=== PATIENT | female | born 1975 | race African-American/Black ===

== ENCOUNTER 2021-08-28 12:08 | Inpatient (IN) | payer OTHER ==
[2021-08-28] MEDS ORDERED: Morphine 4 MG/ML VIAL ONE (12:48)
[2021-08-28] MEDS ORDERED: Mag-Al Plus 1200 MG/1200 MG/120 MG/30 ML UDCUP ONE (12:48)
[2021-08-28] MEDS ORDERED: Ondansetron PF 4 MG/2 ML Vial ONE (12:48)
[2021-08-28] MEDS ORDERED: Lidocaine Viscous Sol 2% 15 ml UD Cup ONE (12:48)
[2021-08-28] MEDS ORDERED: Ketorolac Tromethamine 30 MG/ML VIAL ONE (12:49)
[2021-08-28 13:00] LABS: Hemoglobin 9.5 g/dL (12.0-15.5); Mean Corpuscular HGB CONC 30.1 g/dL (32.0-36.0); Mean Corpuscular Hemoglobin 22.4 pg (27.0-33.0); Mean Corpuscular Volume 74.5 fl (81.6-98.3); Mean Platelet Volume 9.6 fl (7.4-10.4); Platelet Count 431 10x3/uL (150-450); RBC Distribution Width 17.4 % (11.5-14.5); Red Blood Cell (RBC) Count 4.24 10x6/uL (3.90-5.03); White Blood Cell (WBC) Count 5.2 10x3/uL (3.5-10.5)
[2021-08-28 13:01] LABS: MDiff Complete? YES
[2021-08-28 13:14] LABS: ALT (SGPT) 33 U/L (8-55); AST (SGOT) 29 U/L (5-34); Albumin 3.7 g/dL (3.5-5.0); Alkaline Phosphatase 56 U/L (40-110); Anion Gap 16 mmol/L (10-20); BUN (Urea Nitrogen) 7 mg/dL (7.0-18.7); Bilirubin, Total 0.2 mg/dL (0.2-1.2); Calc. Creatinine Clearance 0 mL/min (70-130); Calcium 8.6 mg/dL (7.8-10.44); Carbon Dioxide 20 mmol/L (22-29); Chloride 109 mmol/L (98-107); Globulin 4.1 g/dL (2.4-3.5); Glucose 106 mg/dL (70-105); Lipase 27 U/L (8-78); Potassium 4.5 mmol/L (3.5-5.1); Protein, Total 7.8 g/dL (6.0-8.3); Sodium 140 mmol/L (136-145)
[2021-08-28 13:48] LABS: Monocytes 13 % (0-10)
[2021-08-28 13:52] LABS: Eosinophils 2 % (0-10); Lymphocytes 59 % (21-51); Neutrophil 25 % (42-75)
[2021-08-28] MEDS ORDERED: Iopamidol 370 76% 100 ML VIAL ONE (14:29)
[2021-08-28 15:54] LABS: Troponin I 0.142 ng/mL (< 0.028)
[2021-08-28] MEDS ORDERED: Enoxaparin Sodium 30 MG/0.3 ML SYRINGE ONE (16:12)
[2021-08-28] MEDS ORDERED: Enoxaparin Sodium 100 MG/ML SYRINGE ONE (16:13)
[2021-08-28] MEDS ORDERED: Ondansetron PF 4 MG/2 ML Vial IVP PRN (17:23)
[2021-08-28] MEDS ORDERED: Acetaminophen 325 MG TAB PO PRN (17:23)
[2021-08-28] MEDS ORDERED: hydrALAZINE 20 MG/ML VIAL SLOW IVP PRN (17:31)
[2021-08-28] MEDS ORDERED: Morphine 4 MG/ML VIAL SLOW IVP PRN (17:31)
[2021-08-28 18:01] VITALS: BMI 51.3
[2021-08-28 18:59] LABS: Troponin I 0.671 ng/mL (< 0.028)
[2021-08-28 22:06] LABS: Troponin I 1.401 ng/mL (< 0.028)
[2021-08-28] MEDS ORDERED: Aspirin Chewable 81 MG TAB PO SCH (23:45)
[2021-08-29] MEDS: Nitroglycerin 2% Ointment 1 INCH/1 GM Packet TOP SCH ×3 (00:01→16:16)
[2021-08-29 02:53] LABS: SARS-CoV-2 NAA Rapid Test Not Detected (NotDetected)
[2021-08-29 04:48] LABS: #Eosinphils 0.1 10x3/uL (0.0-0.5); #Monocytes 0.7 10x3/uL (0.0-1.1); #Neutrophils 2.2 10x3/uL (1.5-8.4); %Basophils 0.8 % (0.0-2.0); %Eosinophils 2.2 % (0.0-6.0); %Lymphocytes 40.2 % (18.0-47.0); %Monocytes 12.9 % (0.0-10.0); %Neutrophils 43.5 % (40.0-75.0); Hemoglobin 8.8 g/dL (12.0-15.5); Mean Corpuscular HGB CONC 29.5 g/dL (32.0-36.0); Mean Corpuscular Hemoglobin 22.2 pg (27.0-33.0); Mean Corpuscular Volume 75.1 fl (81.6-98.3); Platelet Count 390 10x3/uL (150-450); RBC Distribution Width 17.2 % (11.5-14.5); Red Blood Cell (RBC) Count 3.97 10x6/uL (3.90-5.03)
[2021-08-29 05:00] LABS: ALT (SGPT) 28 U/L (8-55); AST (SGOT) 42 U/L (5-34); Albumin 3.4 g/dL (3.5-5.0); Alkaline Phosphatase 47 U/L (40-110); Anion Gap 14 mmol/L (10-20); BUN (Urea Nitrogen) 9 mg/dL (7.0-18.7); Bilirubin, Total 0.3 mg/dL (0.2-1.2); Calc. Creatinine Clearance 207 mL/min (70-130); Calcium 8.7 mg/dL (7.8-10.44); Carbon Dioxide 21 mmol/L (22-29); Chloride 110 mmol/L (98-107); Globulin 3.9 g/dL (2.4-3.5); Glucose 87 mg/dL (70-105); Iron 15 ug/dL (50-170); Iron Binding Capacity, Total 411 mcg/dL (265-497); Potassium 4.4 mmol/L (3.5-5.1); Protein, Total 7.3 g/dL (6.0-8.3); Sodium 141 mmol/L (136-145); Troponin I 6.784 ng/mL (< 0.028)
[2021-08-29] MEDS ORDERED: Metoprolol Tartrate 5 MG/5 ML VIAL IVP SCH (06:15)
[2021-08-29] MEDS ORDERED: hydrALAZINE 20 MG/ML VIAL SLOW IVP SCH (06:30)
[2021-08-29 07:41] LABS: Anisocytosis SLIGHT = 6-15 cells (100X) (0-5/hpf); Hypochromia MODERATE=16-30 cells (100X) (0-5/hpf); Microcytosis SLIGHT = 6-15 cells (100X) (0-5/hpf); Platelet Morphology Comment Appears Adequate
[2021-08-29] MEDS: Enoxaparin Sodium 120 MG/0.8 ML SYRINGE SC SCH ×2 (08:31→20:35)
[2021-08-29] MEDS: Carvedilol 6.25 MG TAB PO SCH ×2 (08:32→16:44)
[2021-08-29] MEDS: Aspirin 81 mg Enteric Coated Tablet PO SCH (08:32)
[2021-08-29 13:56] LABS: Troponin I 3.658 ng/mL (< 0.028)
[2021-08-29] MEDS: Docusate 100 MG CAP PO SCH (20:35)
[2021-08-29] MEDS: Atorvastatin Calcium 40 MG TAB PO SCH (20:35)
[2021-08-30] MEDS: Nitroglycerin 2% Ointment 1 INCH/1 GM Packet TOP SCH ×3 (00:36→16:24)
[2021-08-30] MEDS: HYDROcodone/Acetaminophen 5/325 mg Tablet PO PRN ×3 (04:52→21:23)
[2021-08-30 04:57] LABS: #Eosinphils 0.1 10x3/uL (0.0-0.5); #Monocytes 0.6 10x3/uL (0.0-1.1); #Neutrophils 1.9 10x3/uL (1.5-8.4); %Basophils 0.4 % (0.0-2.0); %Eosinophils 1.9 % (0.0-6.0); %Lymphocytes 45.5 % (18.0-47.0); %Monocytes 12.5 % (0.0-10.0); %Neutrophils 39.7 % (40.0-75.0); Hemoglobin 8.9 g/dL (12.0-15.5); Mean Corpuscular HGB CONC 30.8 g/dL (32.0-36.0); Mean Corpuscular Hemoglobin 22.4 pg (27.0-33.0); Mean Corpuscular Volume 72.8 fl (81.6-98.3); Mean Platelet Volume 9.5 fl (7.4-10.4); Platelet Count 351 10x3/uL (150-450); RBC Distribution Width 17.3 % (11.5-14.5); Red Blood Cell (RBC) Count 3.97 10x6/uL (3.90-5.03); White Blood Cell (WBC) Count 4.7 10x3/uL (3.5-10.5)
[2021-08-30 05:19] LABS: Anion Gap 12 mmol/L (10-20); BUN (Urea Nitrogen) 9 mg/dL (7.0-18.7); Calc. Creatinine Clearance 197 mL/min (70-130); Carbon Dioxide 22 mmol/L (22-29); Cardiac Risk 3.1 (Less than 4.5); Chloride 106 mmol/L (98-107); Cholesterol 131 mg/dl (< 200 Desired); Glucose 97 mg/dL (70-105); HDL Cholesterol 42 mg/dL (>60 Neg Risk); LDL Cholesterol, Calculated 73 mg/dL; Potassium 3.7 mmol/L (3.5-5.1); Sodium 136 mmol/L (136-145); Triglycerides 80 mg/dL (Less than 150)
[2021-08-30] MEDS: Enoxaparin Sodium 120 MG/0.8 ML SYRINGE SC SCH (08:19)
[2021-08-30] MEDS: Ferrous Gluconate 324 MG TAB PO SCH (08:19)
[2021-08-30] MEDS: Aspirin 81 mg Enteric Coated Tablet PO SCH (08:19)
[2021-08-30] MEDS: Carvedilol 6.25 MG TAB PO SCH ×2 (08:19→16:24)
[2021-08-30] MEDS: Docusate 100 MG CAP PO SCH (20:29)
[2021-08-30] MEDS: Atorvastatin Calcium 40 MG TAB PO SCH (20:29)
[2021-08-30] MEDS: Apixaban 5 MG TAB PO SCH (20:29)
[2021-08-31] MEDS: Nitroglycerin 2% Ointment 1 INCH/1 GM Packet TOP SCH ×3 (00:59→16:13)
[2021-08-31] MEDS: Apixaban 5 MG TAB PO SCH (09:43)
[2021-08-31] MEDS: Aspirin 81 mg Enteric Coated Tablet PO SCH (09:43)
[2021-08-31] MEDS: Ferrous Gluconate 324 MG TAB PO SCH (09:44)
[2021-08-31] MEDS: Carvedilol 6.25 MG TAB PO SCH ×2 (09:44→16:08)
[2021-08-31 10:11] VITALS: BP 109/78; TEMP 97.9
[2021-08-31] MEDS: Atorvastatin Calcium 40 MG TAB PO SCH (16:08)
[2021-09-06] MEDS ORDERED: Apixaban 5 MG TAB PO SCH (21:00)
== END 2021-08-31 17:00 | disposition home or self-care (01) | DRG 175 ==
LOC: CSHERS 12:08 → CSHICU 16:48 → CSHTELE 08-31 07:32
PROVIDERS: ADMIT Family Medicine; ATTEND Family Medicine
DX: I26.93 Single subsegmental thrombotic pulmonary embolism without acute cor pulmonale (principal); I21.A1 Myocardial infarction type 2; Z68.43 Body mass index [BMI] 50.0-59.9, adult; Z20.822 Contact with and (suspected) exposure to COVID-19; R07.89 Other chest pain; I10 Essential (primary) hypertension; E66.01 Morbid (severe) obesity due to excess calories; E03.9 Hypothyroidism, unspecified; F17.210 Nicotine dependence, cigarettes, uncomplicated; D50.9 Iron deficiency anemia, unspecified; Z79.899 Other long term (current) drug therapy; Z86.718 Personal history of other venous thrombosis and embolism; Z79.01 Long term (current) use of anticoagulants; Z82.49 Family history of ischemic heart disease and other diseases of the circulatory system; Z91.14 Patient's other noncompliance with medication regimen; Z79.82 Long term (current) use of aspirin
CPT/HCPCS: 36415; 71045; 71275; 80048; 80053; 80061; 82728; 83540; 83550; 83690; 83880; 84439; 84443; 84484; 85025; 85046; 93005; 93010; 93306; 96372; 96374; 96375; J0360; J1650; J1885; J2270; J2405; Q9967; U0003; U0005